=== PATIENT | male | born 1990 ===

== ENCOUNTER 2018-09-29 18:48 | Emergency (ER) | payer SELFPAY ==
[~2018-09-29] VITALS: Ht 182.9 cm; Wt 106.1 kg
[2018-09-29] MEDS ORDERED: KETOROLAC 60 MG/2 ML VIAL IM ONE (19:15)
[2018-09-29] MEDS ORDERED: ONDANSETRON 4 MG (ZOFRAN) ORAL DISSOLVE TAB PO ONE ×2 (19:15→20:00)
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
[2018-09-29] MEDS ORDERED: SCOPOLAMINE 1.5 MG (TRANSDERM-SCOP) PATCH TD ONE (20:00)
[2018-09-29] MEDS ORDERED: RX-ONDANSETRON 4 MG ODT (ZOFRAN) PPK #4 PO STA (20:34)
[2018-09-29] MEDS ORDERED: ONDN4T PO (20:34)
[2018-09-29] MEDS ORDERED: RX-ONDANSETRON 4 MG ODT (ZOFRAN) PPK #4 ONE (20:36)
[2018-09-29 20:39] VITALS: BP 145/95
== END 2018-09-29 20:39 | disposition home or self-care (01) ==
LOC: ER 18:51
DX: K52.9 Noninfective gastroenteritis and colitis, unspecified (principal); Z88.0 Allergy status to penicillin; Z87.891 Personal history of nicotine dependence
CPT/HCPCS: 99284